=== PATIENT | female | born 1990 | race Caucasian/White ===

== ENCOUNTER 2017-01-10 20:34 | Emergency (ER) | payer OTHER ==
[2017-01-10 20:43] VITALS: RESP 16; TEMP 98.2
[2017-01-10] MEDS ORDERED: HYDROmorphONE/DILAUDID 1 MG/ML SYR IVP ONE (21:40)
[2017-01-10] MEDS ORDERED: METOCLOPRAMIDE 10 MG/2 ML VIAL IVP ONE (21:40)
[2017-01-10] MEDS ORDERED: NS 1,000 ML IV ONE (21:40)
--- NOTE | 2017-01-10 21:44 | EDPHY ---
H & P Stated Complaint: migraine starting this afternoon with nausea, vomiting Time Seen by Provider: 01/10/17 21:36 HPI/ROS: CHIEF COMPLAINT: Migraine HISTORY OF PRESENT ILLNESS: The patient is a 26-year-old female with a history of migraines who comes to the emergency department complaining of a migraine headache that began at 3:00 a.m.. She took her Triptan medication immediately without relief. She also took promethazine but threw it up. She has not had fevers. No trauma. REVIEW OF SYSTEMS: Constitutional: denies: chills, fever, recent illness, recent injury EENTM: denies: blurred vision, double vision, nose congestion Respiratory: denies: cough, shortness of breath Cardiac: denies: chest pain, irregular heart rate, lightheadedness, palpitations Gastrointestinal/Abdominal: denies: abdominal pain, diarrhea, nausea, vomiting, blood streaked stools Genitourinary: denies: dysuria, frequency, hematuria, pain Musculoskeletal: denies: joint pain, muscle pain Skin: denies: lesions, rash, jaundice, bruising Neurological: See HPI Hematologic/Lymphatic: denies: blood clots, easy bleeding, easy bruising Immunologic/allergic: denies: HIV/AIDS, transplant EXAM: GENERAL: Well-appearing, well-nourished and in no acute distress. HEAD: Atraumatic, normocephalic. EYES: Pupils equal round and reactive to light, extraocular movements intact, sclera anicteric, conjunctiva are normal. ENT: TMs normal, nares patent, oropharynx clear without exudates. Moist mucous membranes. NECK: Normal range of motion, supple without lymphadenopathy or JVD. LUNGS: Breath sounds clear to auscultation bilaterally and equal. No wheezes rales or rhonchi. HEART: Regular rate and rhythm without murmurs, rubs or gallops. ABDOMEN: Soft, nontender, normoactive bowel sounds. No guarding, no rebound. No masses appreciated. BACK: No CVA tenderness, no spinal tenderness, step-offs or deformities EXTREMITIES: Normal range of motion, no pitting or edema. No clubbing or cyanosis. NEUROLOGICAL: Cranial nerves II through XII grossly intact. Normal speech, normal gait. 5/5 strength, normal movement in all extremities, normal sensation PSYCH: Normal mood, normal affect. SKIN: Warm, dry, normal turgor, no visible rashes or lesions. Source: Patient Exam Limitations: No limitations - Personal History LMP (Females 10-55): Now Current Tetanus/Diphtheria Vaccine: Yes - Medical/Surgical History Hx Asthma: No Hx Chronic Respiratory Disease: No Hx Diabetes: No Hx Cardiac Disease: No Hx Renal Disease: No Hx Cirrhosis: No Hx Alcoholism: No Hx HIV/AIDS: No Hx Splenectomy or Spleen Trauma: No Other PMH: breast surgery - Family History Significant Family History: No pertinent family hx - Social History Smoking Status: Never smoked Alcohol Use: Sober Drug Use: None Constitutional: Initial Vital Signs Temperature (C) 36.8 C 01/10/17 20:40 Heart Rate 72 01/10/17 20:40 Respiratory Rate 16 01/10/17 20:40 Blood Pressure 114/70 01/10/17 20:40 O2 Sat (%) 99 01/10/17 20:40 O2 Delivery Mode Room Air Allergies/Adverse Reactions: No Known Allergies Allergy (Unverified 01/10/17 20:43) Home Medications: Medication Instructions Recorded DULoxetine [Cymbalta 60 MG (*)] 60 mg PO DAILY 01/10/17 Promethazine HCl 25 mg PO 01/10/17 Medical Decision Making ED Course/Re-evaluation: 11:20 p.m. the patient is feeling completely better. She is asking to go home. She declines any further workup or testing. She declines prescriptions. She has Phenergan she can take at home as well as her Triptan. Her is here to drive her. I will release her at this time. We discussed indications for returning. Differential Diagnosis: Partial list of the Differential diagnosis considered include but were not limited to; migraine headache, vomiting, dehydration and although unlikely based on the history and physical exam, I also considered , electrolyte abnormality, infection, trauma. I discussed these differential diagnoses and the plan with the patient as well as the usual and expected course. The patient understands that the diagnosis is provisional and that in medicine we are not always correct and that further workup is often warranted. Usual and customary warnings were given. All of the patient's questions were answered. The patient was instructed to return to the emergency department should the symptoms at all worsen or return, otherwise to followup with the physician as we discussed. - Data Points Laboratory Results: Laboratory Results 01/10/17 22:15 08/03/17 22:15 Medications Given: Discontinued Medications Diphenhydramine HCl (Benadryl Injection) 50 mg IVP EDNOW ONE Stop: 01/10/17 21:41 Last Admin: 01/10/17 22:11 Dose: 50 mg Hydromorphone HCl (Dilaudid) 1 mg IVP EDNOW ONE Stop: 01/10/17 21:41 Last Admin: 01/10/17 22:11 Dose: 1 mg Sodium Chloride (Ns) 1,000 mls @ 0 mls/hr IV ONCE ONE; Wide Open PRN Reason: Protocol Stop: 01/10/17 21:41 Last Admin: 01/10/17 22:12 Dose: 1,000 mls Metoclopramide HCl (Reglan Injection) 10 mg IVP EDNOW ONE Stop: 01/10/17 21:41 Last Admin: 01/10/17 22:11 Dose: 10 mg Ondansetron HCl (Zofran Odt 4 Mg Prepack#2) 1 btl TAKEHOME EDNOW ONE Stop: 01/10/17 23:25 Last Admin: 01/10/17 23:46 Dose: 1 btl Departure - Departure Disposition: Home, Routine, Self-Care Clinical Impression: Migraine Qualifiers: Migraine type: with aura Status migrainosus presence: without status migrainosus Intractability: not intractable Qualified Code(s): G43.109 - Migraine with aura, not intractable, without status migrainosus Condition: Fair Instructions: Ondansetron (By mouth), Migraine Headache (ED) Referrals: Justin Gonzalez DO [Primary Care Provider] - As per Instructions
[2017-01-10 22:26] LABS: % IMMATURE GRANULYOCYTES 0.5 % (0.0-1.1); ABSOLUTE IMMATURE GRANULOCYTES 0.05 10^3/uL (0.00-0.10); ADD DIFF? NO; ADD MORPH? NO; ADD SCAN? NO; ATYPICAL LYMPHOCYTE FLAG 0 (0-99); FRAGMENT RBC FLAG 0 (0-99); HEMATOCRIT 47.4 % (38.0-47.0); LEFT SHIFT FLG 0 (0-99); LIPEMIA HEMOLYSIS FLAG 90 (0-99); MEAN CELL HEMOGLOBIN 31.7 pg (27.9-34.1); MEAN CELL HEMOGLOBIN CONCENTR. 33.8 g/dL (32.4-36.7); MEAN CELL VOLUME 93.9 fL (81.5-99.8); MEAN PLATELET VOLUME 11.3 fL (8.7-11.7); PLATELET CLUMPS FLAG 0 (0-99); PLATELET COUNT 177 10^3/uL (150-400); RED BLOOD CELL COUNT 5.05 10^6/uL (4.18-5.33); RED CELL DISTRIBUTION WIDTH 12.1 % (11.5-15.2)
[2017-01-10 22:42] LABS: ANION GAP 12 mEq/L (8-16); CALCIUM 9.5 mg/dL (8.5-10.4); CARBON DIOXIDE 19 mEq/l (22-31); CHLORIDE 110 mEq/L (97-110); CREATININE 0.7 mg/dL (0.6-1.0); GLOMERULAR FILTRATION RATE > 60; GLUCOSE 81 mg/dL (70-100); SODIUM 141 mEq/L (134-144); SPECIMEN HEMOLYSIS 100
[2017-01-10] MEDS ORDERED: ONDANSETRON 4MG PREPACK#2 BTL TAKEHOME ONE (23:24)
[2017-01-10 23:51] VITALS: BP 101/63; PULSE 70; O2SAT 98
== END 2017-01-10 23:55 | disposition home or self-care (01) ==
DX: G43.109 Migraine with aura, not intractable, without status migrainosus (principal); E86.9 Volume depletion, unspecified
CPT/HCPCS: 96374; J1170; J1200; J2765

== ENCOUNTER 2017-06-05 07:59 | Emergency (ER) | payer OTHER ==
[2017-06-05 08:05] VITALS: TEMP 98.4; O2SAT 96
[2017-06-05] MEDS ORDERED: DEXAMETHASONE 10 MG/ML VIAL IVP ONE (08:08)
[2017-06-05] MEDS ORDERED: METOCLOPRAMIDE 10 MG/2 ML VIAL IVP ONE (08:08)
[2017-06-05] MEDS ORDERED: KETOROLAC 30 MG/1 ML SDV IVP ONE (08:08)
--- NOTE | 2017-06-05 08:33 | EDPHY ---
H & P Stated Complaint: CRUZ Time Seen by Provider: 06/05/17 08:31 HPI/ROS: CHIEF COMPLAINT: Acute headache HISTORY OF PRESENT ILLNESS: The patient presents to the ED with a 1 day history of an acute headache. The patient describes a bifrontal headache with associated mild photophobia, nausea and vomiting. She has a several year history of intermittent headache which has been diagnosed as a migraine syndrome. She gets frequent headaches and states that typically it is not uncommon for her to get a more severe headache with her menstrual cycle. She is currently trying to manage her headache with the assistance of control pills. She takes no prescription medications for migraines at home. The patient denies any history of fall or trauma. She denies any fever, neck stiffness, numbness or weakness. She currently reports her headache is moderate in nature. REVIEW OF SYSTEMS: A comprehensive 10 point review of systems is otherwise negative aside from elements mentioned in the history of present illness. Source: Patient Exam Limitations: No limitations - Personal History LMP (Females 10-55): Now Current Tetanus/Diphtheria Vaccine: Yes Current Tetanus Diphtheria and Acellular Pertussis (TDAP): Yes - Medical/Surgical History Hx Asthma: No Hx Chronic Respiratory Disease: No Hx Diabetes: No Hx Cardiac Disease: No Hx Renal Disease: No Hx Cirrhosis: No Hx Alcoholism: No Hx HIV/AIDS: No Hx Splenectomy or Spleen Trauma: No Other PMH: breast surgery, migraine, - Social History Smoking Status: Never smoked - Physical Exam Exam: General Appearance: Alert, no distress Eyes: Pupils equal and round no pallor or injection ENT, Mouth: Mucous membranes moist Respiratory: There are no retractions, lungs are clear to auscultation Cardiovascular: Regular rate and rhythm Gastrointestinal: Abdomen is soft and nontender, no masses, bowel sounds normal Neurological: A&O, normal motor function, normal sensory exam, normal cranial nerves Skin: Warm and dry, no rashes Musculoskeletal: Neck is supple nontender, specifically no meningeal symptoms are noted Extremities: symmetrical, full range of motion Constitutional: Initial Vital Signs Temperature (C) 36.9 C 06/05/17 08:03 Heart Rate 92 06/05/17 08:03 Respiratory Rate 24 H 06/05/17 08:03 Blood Pressure 128/86 H 06/05/17 08:03 O2 Sat (%) 96 06/05/17 08:03 O2 Delivery Mode Room Air Allergies/Adverse Reactions: No Known Allergies Allergy (Unverified 06/05/17 08:02) Home Medications: Medication Instructions Recorded DULoxetine [Cymbalta 60 MG (*)] 60 mg PO DAILY 01/10/17 Ondansetron 06/05/17 Medical Decision Making ED Course/Re-evaluation: I reviewed the patient's past medical records including her emergency department visit from January of this year. She presents to the ED with a typical acute headache. She had an IV established. She received IV dexamethasone, Benadryl, Toradol and Reglan. Patient was re-evaluated at 9:21 p.m.. Her headache has resolved. Her neurologic exam remains normal. She has no evidence of any meningeal symptoms. She will be discharged home with customary aftercare instructions and return precautions. Differential Diagnosis: Differential diagnosis considered includes tension headache, migraine headache, dehydration - Data Points Medications Given: Discontinued Medications Dexamethasone (Decadron Injection) 10 mg IVP EDNOW ONE Stop: 06/05/17 08:09 Last Admin: 06/05/17 08:38 Dose: 10 mg Diphenhydramine HCl (Benadryl Injection) 25 mg IVP EDNOW ONE Stop: 06/05/17 08:09 Last Admin: 06/05/17 08:35 Dose: 25 mg Ketorolac Tromethamine (Toradol) 30 mg IVP EDNOW ONE Stop: 06/05/17 08:09 Last Admin: 06/05/17 08:40 Dose: 30 mg Metoclopramide HCl (Reglan Injection) 10 mg IVP EDNOW ONE Stop: 06/05/17 08:09 Last Admin: 06/05/17 08:36 Dose: 10 mg Departure - Departure Disposition: Home, Routine, Self-Care Clinical Impression: Migraine Condition: Good Instructions: Acute Headache (ED) Additional Instructions: 1. Take Ibuprofen or Motrin 600 mg by mouth three times a day. 2. Tylenol 650 mg every 6 hr as needed for pain. 3. Return to the ED for markedly worsening symptoms, fever, neck stiffness, new neurologic symptoms such as numbness, weakness or blurry vision. 4. Please follow-up with your primary care provider as needed. Referrals: Justin Gonzalez DO [Primary Care Provider] - As per Instructions
[2017-06-05 09:46] VITALS: BP 115/70; PULSE 78; RESP 16
== END 2017-06-05 09:46 | disposition home or self-care (01) ==
DX: G43.909 Migraine, unspecified, not intractable, without status migrainosus (principal)
CPT/HCPCS: 96374; J1100; J1200; J1885; J2765